=== PATIENT | female | born 1950 | race Hispanic/Latino ===

== ENCOUNTER 2018-05-10 06:29 | Day surgery (SDC) | payer OTHER, MEDICARE ==
[2018-05-10] MEDS ORDERED: ECOTRIN PO NR (06:56)
[2018-05-10] MEDS ORDERED: NACL 0.9% 500 ML 500 ML IV SCH (07:00)
[2018-05-10 07:49] LABS: Basophils # (Auto) 0.1 K/mm3 (0.0-0.1); Basophils % (Auto) 0.7 % (0.0-1.8); Eosinophils # (Auto) 0.1 K/mm3 (0.0-0.4); Eosinophils % (Auto) 1.3 % (0.0-4.3); Hematocrit 35.8 % (30.3-42.9); Hemoglobin 11.5 gm/dl (10.1-14.3); Lymphocytes # (Auto) 0.9 K/mm3 (1.2-5.4); Lymphocytes % (Auto) 12.9 % (13.4-35.0); Mean Corpuscular HGB Conc 32 % (30-34); Mean Corpuscular Hemoglobin 29 pg (28-32); Mean Corpuscular Volume 90 fl (79-97); Monocytes # (Auto) 0.6 K/mm3 (0.0-0.8); Monocytes % (Auto) 8.7 % (0.0-7.3); Platelet Count 263 K/mm3 (140-440); Red Blood Count 3.98 M/mm3 (3.65-5.03); Red Cell Distribution Width 16.3 % (13.2-15.2)
[2018-05-10 07:59] LABS: INR 0.94 (0.87-1.13)
[2018-05-10 08:03] LABS: Calcium 9.1 mg/dL (8.4-10.2)
[2018-05-10] MEDS ORDERED: HEPARIN/NS 5000 UNIT/500ML(CATH LAB) 1,000 ML IR ONE ×2 (08:14→09:13)
[2018-05-10] MEDS ORDERED: XYLOCAINE 2% INFILTRATI ONE (08:14)
[2018-05-10] MEDS ORDERED: CALAN ONE (08:14)
[2018-05-10] MEDS ORDERED: NITROGLYCERIN SYRINGE 3 ML ONE (08:15)
[2018-05-10] MEDS ORDERED: VERSED ONE (08:16)
[2018-05-10] MEDS: SUBLIMAZE ONE ×3 (08:40→09:53)
[2018-05-10] MEDS: HEPARIN 10,000 UNITS/10 ML ONE ×2 (08:43→08:54)
[2018-05-10] MEDS ORDERED: HEPARIN/ 0.45% NACL-25,000 UNIT/500 ML 25,000 UNIT/500 ML BAG ONE (09:05)
[2018-05-10] MEDS: XYLOCAINE MPF 2% ONE ×2 (09:17→09:48)
--- NOTE | 2018-05-10 09:47 | Cardiac Catherization Report ---
CARDIAC CATHETERIZATION REFERRING PHYSICIAN: Dr. Worley. INDICATION FOR PROCEDURE: The patient is a very pleasant 67-year-old female who had a markedly abnormal stress test with a significant anterior ischemia yesterday was referred for left heart catheterization. Risks, benefits, and potential alternatives at length prior to obtaining informed consent. PROCEDURE IN DETAIL: The patient was brought to the catheterization lab in a postabsorptive state, prepped and draped in sterile fashion. Alexis's test in right hand was normal. A 2 mL of 2% lidocaine used to anesthetize the right wrist. A standard 6-Macanese hydrophilic sheath used to cannulate the right radial artery via modified Seldinger technique. All exchanges performed to exchange a J-tip guidewire. JL3.5 catheter used to engage the left main. No dampening or ventricularization. Cineangiography performed in multiple projections. JR4 catheter was used to cross the aortic valve under fluoroscopic guidance. Left ventriculography performed in 30 [place] and [place] projections via hand injections, catheter flushed. Manual pullback performed with continuous pressure monitoring. Catheter used to engage the right coronary. No dampening or ventricularization. Cineangiography performed in all projections. Next, catheter removed from the body of wire, sheath removed. Manual pressure used to achieve hemostasis. DATA: Aortic pressure is 150/50, LV pressure is 150, LVEDP of 20 mmHg. The patient remained in normal sinus rhythm throughout the procedure. Left ventriculography revealed normal systolic performance with estimated ejection fraction of 55-69%. No evidence of aortic stenosis. CORONARY ANATOMY: This is a right dominant system. Left main is well identified. There appears to be a significant distal left main lesion which involved the ostium of the left circumflex and the ostium of the LAD. Ostial LAD appears to be 80% hazy much overlap on angiogram. Ostium of the left circumflex appears to be 90% at least. SUN 3 flow throughout the coronary circulation. No significant disease in the body of the left circumflex or left anterior descending artery. The right coronary is well identified. There is an 80% ostial stenosis noted. At this point, given the questionable distal left main disease proceeded with IVUS, further heparin was given. Abnormal ACT is confirmed. A JL3.5 guide used to engage left main without difficulty. A [place] wire used to cross into the distal LAD without difficulty. I used an IVUS catheter. Multiple passes were made. IVUS reveals a very severe lesion in the ostial LAD, distal left main, MLA of 2.3. This also involves the ostium of the left circumflex. At this point, given severe distal left main disease, albeit patient entirely clinically hemodynamically and electrically stable, decided to proceed with intraaortic balloon pump. A 10 mL of 2% lidocaine used to anesthetize the right coronary and standard 7-Macanese sheath used to cannulate the right common femoral artery. Intraaortic balloon pump placed under fluoroscopic guidance and functioning normally. The sheath was secured. The patient started on IV heparin. I directly supervised the administration of moderate sedation from 8:38 to 9:30 a.m. CONCLUSIONS: 1. Severe epicardial coronary disease with a very critical 90% distal left main stenosis involving the ostium of the LAD and left circumflex. This is confirmed by intravascular ultrasound, which reveals an MLA of approximately 2.3, also 80% ostial right coronary disease. 2. Preserved left ventricular systolic performance, estimated ejection fraction of 55-60%. 3. No evidence of aortic stenosis. 4. Successful placement of intraaortic balloon pump under fluoroscopic guidance. The patient is clinically and hemodynamically stable, started on IV heparin, already given aspirin. Discussed with Dr. Cedric De La Rosa. The patient will be transferred to [facility] for further care and coronary bypass surgery. She is stable for transfer. Results of procedure explained at length to patient and family. All questions and concerns were addressed. JOB# [id number] SBJuan/MEGAN
[2018-05-10] MEDS ORDERED: XYLOCAINE CARDIAC IV ONE (09:49)
[2018-05-10 10:42] VITALS: BP 149/76
[2018-05-10] MEDS ORDERED: VERSED IV ONE (12:03)
--- NOTE | 2018-05-10 13:38 | Short Stay Summary ---
Short Stay Documentation Date of service: 05/10/18 - History H&P: obtained from office - Allergies and Medications Current Medications: Allergies No Known Allergies Allergy (Unverified 05/10/18 06:31) Home Medications Medication Instructions Recorded Confirmed Last Taken Type Acyclovir [Zovirax Tab] 800 mg PO DAILY 05/10/18 05/10/18 05/09/18 History 800mg Allopurinol 300 mg PO DAILY 05/10/18 05/10/18 05/09/18 History 300mg Aspirin EC [Aspirin Enteric Coated 81 mg PO QDAY 05/10/18 05/10/18 05/09/18 History TAB] 81mg Atorvastatin Calcium 40 mg PO DAILY 05/10/18 05/10/18 05/09/18 History 40mg Carvedilol [Coreg] 12.5 mg PO BID 05/10/18 05/10/18 05/09/18 History 12.5mg Chlorthalidone 25 mg PO DAILY 05/10/18 05/10/18 05/09/18 History 25mg Ferrous Sulfate [Iron] 325 mg PO DAILY 05/10/18 05/10/18 05/09/18 History 325mg Multivit-Min/Iron/Folic Acid/K 1 tab PO DAILY 05/10/18 05/10/18 05/09/18 History [Multi-Day Plus Minerals Tablet] 1 tab Potassium Chloride 10 meq PO DAILY 05/10/18 05/10/18 05/09/18 History 10meq metFORMIN XR [Glucophage XR] 500 mg PO BID 05/10/18 05/10/18 05/09/18 History 500mg - Brief post op/procedure progress note Date of procedure: 05/10/18 Pre-op diagnosis: abnormal stress test Post-op diagnosis: other (CAD) Procedure: [facility] - see dictated cath report Anesthesia: local Estimated blood loss: none Condition: stable - Hospital course Hospital course: pt tx to [facility] with IABP for possible CABG - Disposition Condition at discharge: Fair Disposition: [id number]/[place]-70 ANOTHER [facility] - Discharge Diagnoses (1) CAD (coronary artery disease) Status: Chronic Short Stay Discharge Plan Wound: per your surgeon's advice Follow up with: THERESA REYNOSO MD [Primary Care Provider] - 7 Days
== END 2018-05-10 11:00 | disposition other institution (70) ==
LOC: CATHLABREC 06:29
PROVIDERS: ATTEND Internal Medicine
DX: I25.10 Atherosclerotic heart disease of native coronary artery without angina pectoris (principal); E11.9 Type 2 diabetes mellitus without complications; I10 Essential (primary) hypertension; Z79.899 Other long term (current) drug therapy; Z79.82 Long term (current) use of aspirin; Z79.01 Long term (current) use of anticoagulants; Z79.84 Long term (current) use of oral hypoglycemic drugs; Z90.49 Acquired absence of other specified parts of digestive tract; Z98.890 Other specified postprocedural states
CPT/HCPCS: 33967; 36415; 80048; 85025; 85610; 85730; 92978; 93005; 93010; 93458; 99156; 99157; C1753; C1769; C1887; C1894; J1644; J2001; J2250; J3010; J7040; Q9967

== ENCOUNTER 2019-01-23 08:16 | Outpatient (CLI) | payer OTHER ==
--- NOTE | 2019-01-23 11:25 | Fluoroscopy Report ---
Esophagram: History: Dysphagia. Barium swallow the tablet. Findings: Transit of barium to the cervical esophagus appears normal. There is suspicion of an also noted at the lower cervical esophagus with the stricture at the level of C5. There was stasis of tablet noted in the region distal to the ulcer the eventually passed into stomach with barium swallow. There is noted small sliding hiatal hernia. No reflux is noted. Impression: Findings as detailed above. Esophagoscopy may be recommended.
== END 2019-01-23 08:17 | disposition home or self-care (01) ==
LOC: FLUORO 08:16
PROVIDERS: ATTEND Internal Medicine Gastroenterology
DX: K44.9 Diaphragmatic hernia without obstruction or gangrene (principal); K21.9 Gastro-esophageal reflux disease without esophagitis; I25.10 Atherosclerotic heart disease of native coronary artery without angina pectoris; I10 Essential (primary) hypertension; E11.9 Type 2 diabetes mellitus without complications
CPT/HCPCS: 74220

== ENCOUNTER 2019-04-02 10:11 | Day surgery (SDC) | payer MEDICARE, OTHER ==
[~2019-04-02 10:11] MED LIST: NACL 0.9% 1000 ML 1,000 ML IV SCH
[2019-04-02] MEDS ORDERED: DIPRIVAN 10 MG/ML IV ONE (11:18)
[2019-04-02 11:41] VITALS: BP 151/69
--- NOTE | 2019-04-02 19:22 | Anesthesia Day of Surgery ---
Anesthesia Day of Surgery - Day of Surgery Patient Examined: Yes Patient H&P Reviewed: Yes Patient is NPO: Yes
--- NOTE | 2019-04-02 19:22 | Anesthesia Consultation ---
Anesthesia Consult and Med Hx Date of service: 04/02/19 - Airway Anesthetic Teeth Evaluation: Poor Intubation Access Assessment: Possibly Difficult - Pre-Operative Health Status ASA Pre-Surgery Classification: ASA3 Proposed Anesthetic Plan: MAC - Pulmonary Hx Smoking: Yes SOB: Yes - Cardiovascular System Hx Hypertension: Yes Hx Coronary Artery Disease: Yes (s/p CABG 2017) Hx Heart Attack/AMI: No Hx Percutaneous Transluminal Coronary Angioplasty (PTCA): No - Central Nervous System Hx Psychiatric Problems: No - Gastrointestinal Hx Ulcer: Yes Hx Gastroesophageal Reflux Disease: Yes (w/ hiatal hernia) - Endocrine Hx Non-Insulin Dependent Diabetes: Yes - Hematic Hx Anemia: Yes - Other Systems Hx Obesity: Yes
== END 2019-04-02 10:12 | disposition home or self-care (01) ==
LOC: GIO 10:11
PROVIDERS: ATTEND Internal Medicine Gastroenterology
DX: K21.9 Gastro-esophageal reflux disease without esophagitis (principal); R13.10 Dysphagia, unspecified; I25.10 Atherosclerotic heart disease of native coronary artery without angina pectoris; I10 Essential (primary) hypertension; E66.9 Obesity, unspecified; E11.9 Type 2 diabetes mellitus without complications; D64.9 Anemia, unspecified; Z53.8 Procedure and treatment not carried out for other reasons; Z79.899 Other long term (current) drug therapy; Z79.82 Long term (current) use of aspirin; Z79.84 Long term (current) use of oral hypoglycemic drugs; Z95.1 Presence of aortocoronary bypass graft; Z90.49 Acquired absence of other specified parts of digestive tract; Z68.37 Body mass index [BMI] 37.0-37.9, adult; Z98.890 Other specified postprocedural states; Z82.49 Family history of ischemic heart disease and other diseases of the circulatory system
CPT/HCPCS: 82962; J7030; J2704

== ENCOUNTER 2019-04-16 06:35 | Day surgery (SDC) | payer MEDICARE, OTHER ==
[2019-04-16] MEDS ORDERED: NACL 0.9% 1000 ML 1,000 ML IV SCH (08:00)
--- NOTE | 2019-04-16 08:10 | Anesthesia Day of Surgery ---
Anesthesia Day of Surgery - Day of Surgery Patient Examined: Yes Patient H&P Reviewed: Yes Patient is NPO: Yes
--- NOTE | 2019-04-16 08:12 | Anesthesia Consultation ---
Anesthesia Consult and Med Hx Date of service: 04/16/19 - Airway Anesthetic Teeth Evaluation: Dentures, Edentulous ROM Head & Neck: Adequate Mental/Hyoid Distance: Adequate Mallampati Class: Class II Intubation Access Assessment: Good - Pre-Operative Health Status ASA Pre-Surgery Classification: ASA3 Proposed Anesthetic Plan: MAC - Pulmonary Hx Smoking: Yes SOB: Yes (uses inhaler prn) - Cardiovascular System Hx Hypertension: Yes Hx Coronary Artery Disease: Yes (Recently saw template reproduction technician-ok per pt) Hx Heart Attack/AMI: No Hx Angina: No Hx Percutaneous Transluminal Coronary Angioplasty (PTCA): No - Central Nervous System Hx Psychiatric Problems: No - Gastrointestinal Hx Ulcer: Yes Hx Gastroesophageal Reflux Disease: Yes (w/ hiatal hernia) - Endocrine Hx Non-Insulin Dependent Diabetes: Yes - Hematic Hx Anemia: Yes - Other Systems Hx Cancer: No Hx Obesity: Yes
[2019-04-16] MEDS ORDERED: XYLOCAINE 2% INFILTRATI ONE (08:48)
[2019-04-16] MEDS ORDERED: DIPRIVAN 10 MG/ML IV ONE (08:48)
--- NOTE | 2019-04-16 09:11 | Short Stay Summary ---
Short Stay Documentation Date of service: 04/16/19 Narrative H&P: The patient presents for EGD/dilation for dysphagia - History Past Medical History: CAD, diabetes, other (obesity, gout) Past Surgical History: Social history: no significant social history, , lives with family - Allergies and Medications Current Medications: Allergies No Known Allergies Allergy (Verified 09/03/18 13:08) Home Medications Medication Instructions Recorded Confirmed Last Taken Type Allopurinol 300 mg PO DAILY 05/10/18 04/02/19 04/01/19 15:00 History Aspirin EC [Aspirin Enteric Coated 81 mg PO QDAY 05/10/18 04/02/19 04/01/19 15:00 History TAB] Atorvastatin Calcium 40 mg PO DAILY 05/10/18 04/02/19 04/01/19 15:00 History Carvedilol [Coreg] 12.5 mg PO BID 05/10/18 04/02/19 04/01/19 15:00 History Ferrous Sulfate [Iron 325 MG] 325 mg PO DAILY 05/10/18 04/02/19 04/01/19 15:00 History Multivit-Min/Iron/Folic Acid/K 1 tab PO DAILY 05/10/18 04/02/19 04/01/19 15:00 History [Multi-Day Plus Minerals Tablet] Potassium Chloride 10 meq PO DAILY 05/10/18 04/02/19 04/01/19 15:00 History metFORMIN XR [Glucophage XR] 500 mg PO BID 05/10/18 04/02/19 04/01/19 15:00 History Cyanocobalamin (Vitamin B-12) 1,000 mcg PO DAILY 09/03/18 04/02/19 04/01/19 15:00 History [Vitamin B-12] Furosemide [Lasix TAB] 40 mg PO DAILY 09/03/18 04/02/19 04/01/19 15:00 History Rivaroxaban [Xarelto] 15 mg PO DAILY 09/03/18 04/02/19 04/01/19 15:00 History amLODIPine [Norvasc] 5 mg PO DAILY 09/03/18 04/02/19 04/01/19 15:00 History Active Medications Sodium Chloride (Nacl 0.9% 1000 Ml) 1,000 mls @ 50 mls/hr IV DIRECT KEVIN Last Admin: 04/16/19 08:26 Dose: 50 mls/hr Documented by: - Physical exam General appearance: no acute distress, well-nourished, obese Integumentary: no rash, no growths, no abnormal pigmentation HEENT: Atraumatic, PERRLA, EOMI, Mucous membr. moist/pink Lungs: Clear to auscultation, Normal air movement Breasts: deferred Heart: Regular rate, Normal S1, Normal S2, No murmurs Gastrointestinal: normoactive bowel sounds, no tenderness, no distended, no masses, no guarding, no organomegaly, no obese Female Genitourinary: deferred Rectal Exam: deferred Extremities: no ischemia, pulses intact, pulses symmetrical, No edema, normal temperature, normal color, Full ROM Neurological: Normal gait, Normal speech, Strength at 5/5 X4 ext, Normal tone, Sensation intact, Cranial nerves 3-12 NL, Reflexes 2+ - Brief post op/procedure progress note Date of procedure: 04/16/19 Findings: see dictation Estimated blood loss: none Pathology: none Specimen disposition: to lab Condition: stable - Disposition Condition at discharge: Good Disposition: DC-01 TO HOME OR SELFCARE - Discharge Diagnoses (1) Dysphagia Status: Acute Short Stay Discharge Plan Activity: no restrictions, other (no driving for 24, restart Xarelto in 48 hours) Weight Bearing Status: Full Weight Bearing Diet: diabetic Follow up with: THERESA REYNOSO MD [Primary Care Provider] - 7 Days
[2019-04-16] MEDS ORDERED: VERSED ONE (09:13)
--- NOTE | 2019-04-16 09:18 | Operative Report ---
Operative Report Operative Report: Date of procedure: 04/16/2019 Procedure: Esophagogastroduodenoscopy with esophageal dilation-42 and 50 Cymraes Siegel dilators. Preprocedure diagnosis: Dysphagia to solid foods Post procedure diagnosis: Benign distal esophageal rings Endoscopist: Dr. Pham Anesthesia: Monitored anesthesia care per anesthesia department Medications: Propofol per anesthesia Estimated blood loss: 0 After careful discussion of the nature and purpose of the procedure as well as details the technique risks benefits and alternatives consent was obtained. The patient was placed in the left lateral decubitus position and medicated per anesthesia. The tip of the [email or web address] EQ 570 video scope was passed per orum under direct vision into the esophagus and advanced into the stomach and descending duodenum. The descending duodenum the duodenal bulb and pylorus were symmetrical and normal. The scope was withdrawn into the stomach and the stomach then gently insufflated with air. The antrum was normal. The stomach was further insufflated and the scope was then retroflexed and partially with drawn. The cardia, fundus, and body of the stomach were within normal limits and easily distensible.The scope was then withdrawn in the forward position. The esophagogastric junction was at 37 cm. Small hiatus hernia was present. Multiple benign appearing distal esophageal rings were present. In light of symptoms, dilation was performed. A Siegel 42 Cymraes dilator was passed with minimal resistance followed by a 50 Cymraes dilator with mild resistance. The esophageal body was otherwise normal throughout. The procedure was was well tolerated and the patient was observed in recovery. Impressions: Multiple benign appearing distal esophageal rings. Status post dilation. Small hiatus hernia. Plan: Redilate when necessary. Continue acid suppression therapy. Electronically signed: [place] Pham MD
[2019-04-16] MEDS ORDERED: WATER FOR IRRIG STERILE IR ONE (09:39)
[2019-04-16 09:42] VITALS: BP 145/59
== END 2019-04-16 06:36 | disposition home or self-care (01) ==
LOC: GIO 06:35
PROVIDERS: ATTEND Internal Medicine Gastroenterology
DX: K22.2 Esophageal obstruction (principal); I25.10 Atherosclerotic heart disease of native coronary artery without angina pectoris; K21.9 Gastro-esophageal reflux disease without esophagitis; K44.9 Diaphragmatic hernia without obstruction or gangrene; I10 Essential (primary) hypertension; E66.9 Obesity, unspecified; E11.9 Type 2 diabetes mellitus without complications; Z79.899 Other long term (current) drug therapy; Z79.84 Long term (current) use of oral hypoglycemic drugs; Z79.82 Long term (current) use of aspirin; Z95.1 Presence of aortocoronary bypass graft; Z90.49 Acquired absence of other specified parts of digestive tract; Z68.37 Body mass index [BMI] 37.0-37.9, adult; Z98.890 Other specified postprocedural states; Z82.49 Family history of ischemic heart disease and other diseases of the circulatory system; Z86.2 Personal history of diseases of the blood and blood-forming organs and certain disorders involving the immune mechanism
CPT/HCPCS: 43450; 82962; J2250; J2704; J7030

== ENCOUNTER 2021-03-23 07:28 | Day surgery (SDC) | payer MEDICARE, OTHER ==
[~2021-03-23 07:28] MED LIST changes: -NACL 0.9% 1000 ML 1,000 ML IV SCH; +SODIUM CHLORIDE 0.9% 1000 ML 1,000 ML IV SCH
--- NOTE | 2021-03-23 07:59 | Anesthesia Consultation ---
<ARANZA NELSON - Last Filed: 03/23/21 08:01> Anesthesia Consult and Med Hx Date of service: 03/23/21 - Airway Anesthetic Teeth Evaluation: Dentures (upper and lower), Edentulous ROM Head & Neck: Adequate Mental/Hyoid Distance: Adequate Mallampati Class: Class III Intubation Access Assessment: Possibly Difficult - Pre-Operative Health Status ASA Pre-Surgery Classification: ASA3 Proposed Anesthetic Plan: MAC - Pulmonary Hx Smoking: Yes SOB: Yes (uses inhaler prn) - Cardiovascular System Hx Hypertension: Yes Hx Coronary Artery Disease: Yes (s/p CABG 2017, no CP) Hx Heart Attack/AMI: No Hx Angina: No Hx Percutaneous Transluminal Coronary Angioplasty (PTCA): No - Central Nervous System Hx Psychiatric Problems: No - Gastrointestinal Hx Ulcer: Yes (dysphagea) Hx Gastroesophageal Reflux Disease: Yes (w/ hiatal hernia) - Endocrine Hx Non-Insulin Dependent Diabetes: Yes - Hematic Hx Anemia: Yes - Other Systems Hx Cancer: No Hx Obesity: Yes <FERNANDA DOHERTY - Last Filed: 03/23/21 09:20> Anesthesia Consult and Med Hx - Additional Comments Anesthesia Medical History Comments: No signs/symptoms cardiac decompensation. Last dose coumadin 03/13/21. Most recent cardiology eval requested.
[2021-03-23] MEDS ORDERED: propofoL 200 MG/20 ML VIAL IV ONE ×2 (09:19→09:38)
--- NOTE | 2021-03-23 09:20 | Anesthesia Day of Surgery ---
Anesthesia Day of Surgery - Day of Surgery Patient Examined: Yes Patient H&P Reviewed: Yes Patient is NPO: Yes
--- NOTE | 2021-03-23 09:55 | Short Stay Summary ---
Short Stay Documentation Date of service: 03/23/21 Narrative H&P: the patient presents for EGD and dilation due to dysphagia and history of esophageal rings - History Past Medical History: CAD, COPD, diabetes, hypertension, hyperlipidemia, other (morbid obesity) Past Surgical History: Social history: no significant social history, , lives with family - Allergies and Medications Current Medications: Allergies No Known Allergies Allergy (Verified 09/03/18 13:08) Home Medications Medication Instructions Recorded Confirmed Last Taken Type Aspirin EC [Halfprin EC] 81 mg PO QDAY 05/10/18 04/02/19 04/01/19 15:00 History 81 mg Atorvastatin Calcium 40 mg PO DAILY 05/10/18 04/02/19 04/01/19 15:00 History 40 mg Ferrous Sulfate [Iron 325 MG] 325 mg PO DAILY 05/10/18 04/02/19 04/01/19 15:00 History 325 mg Multivit-Min/Iron/Folic Acid/K 1 tab PO DAILY 05/10/18 04/02/19 04/01/19 15:00 History [Multi-Day Plus Minerals Tablet] Potassium Chloride 10 meq PO DAILY 05/10/18 04/02/19 04/01/19 15:00 History 10 meq allopurinoL [Allopurinol] 300 mg PO DAILY 05/10/18 04/02/19 04/01/19 15:00 History 300 mg carvediloL [Coreg] 12.5 mg PO BID 05/10/18 04/02/19 04/01/19 15:00 History metFORMIN XR [Glucophage XR] 500 mg PO BID 05/10/18 04/02/19 04/01/19 15:00 History 500 mg Cyanocobalamin (Vitamin B-12) 1,000 mcg PO DAILY 09/03/18 04/02/19 04/01/19 15:00 History [Vitamin B-12] Furosemide [Lasix TAB] 40 mg PO DAILY 09/03/18 04/02/19 04/01/19 15:00 History amLODIPine 5 mg PO DAILY 09/03/18 04/02/19 04/01/19 15:00 History Active Medications Sodium Chloride (Nacl 0.9% 1000 Ml) 1,000 mls @ 50 mls/hr IV DIRECT KEVIN - Physical exam General appearance: no acute distress, well-nourished, obese Integumentary: no rash, no growths, no abnormal pigmentation HEENT: Atraumatic, PERRLA, EOMI, Mucous membr. moist/pink Lungs: Clear to auscultation, Normal air movement Breasts: deferred Heart: Regular rate, Normal S1, Normal S2, No murmurs Gastrointestinal: normoactive bowel sounds, no tenderness, no distended, no masses, no guarding, no organomegaly, obese Female Genitourinary: deferred Rectal Exam: deferred Extremities: no ischemia, pulses intact, pulses symmetrical, No edema, normal temperature, normal color, Full ROM Neurological: Normal gait, Normal speech, Strength at 5/5 X4 ext, Normal tone, Sensation intact, Cranial nerves 3-12 NL - Brief post op/procedure progress note Date of procedure: 03/23/21 Findings: see dictation Estimated blood loss: minimal Pathology: list (1. antral biopsies for h.pylori, 2. mid esophageal biopsies for EOE) Specimen disposition: to lab Condition: stable - Disposition Condition at discharge: Good Disposition: DC-01 TO HOME OR SELFCARE - Discharge Diagnoses (1) Dysphagia Status: Acute (2) CAD (coronary artery disease) Status: Chronic Short Stay Discharge Plan Activity: other (no driving for 24 hours, restart warfarin tomorrow) Weight Bearing Status: Weight Bear as Tolerated Diet: diabetic Follow up with: THERESA REYNOSO MD [Primary Care Provider] - 7 Days
--- NOTE | 2021-03-23 10:00 | Operative Report ---
Operative Report Operative Report: Date of procedure: 03/23/2021 Procedure: Esophagogastroduodenoscopy with biopsies of the antrum for H. pylori, biopsies of the midesophagus for eosinophilic esophagitis. Balloon dilation of the esophagus, 12-15, 18 mm. Preprocedure diagnosis: Dysphagia to solid foods. History of esophageal rings. Post procedure diagnosis: Moderate diffuse gastritis with retained bile. Small hiatus hernia. Multiple esophageal rings. Endoscopist: Dr. Pham Anesthesia: Monitored anesthesia care per anesthesia department Medications: Propofol per anesthesia Estimated blood loss: 0 After careful discussion of the nature and purpose of the procedure as well as details the technique risks benefits and alternatives consent was obtained. The patient was placed in the left lateral decubitus position and medicated per anesthesia. The tip of the [employer] EQ 570 video scope was passed per orum under direct vision into the esophagus and advanced into the stomach and descending duodenum. The descending duodenum the duodenal bulb and pylorus were symmetrical and normal. The scope was withdrawn into the stomach and the stomach then gently insufflated with air. The antrum revealed moderate diffuse erythema and some retained bile. 3 biopsies were taken in the prepyloric area for H. pylori testing. The stomach was further insufflated and the scope was then retroflexed and partially withdrawn. There was moderate diffuse erythema of the body of the stomach and some retained bile. A small hiatus hernia was present. The cardia and fundus were otherwise normal on retroflexed view. The esophagogastric junction was at 35 cm. Multiple esophageal rings were present, mostly in the distal third. Balloon dilation was then performed. Initially a 12 to 15 mm balloon was utilized sequentially over 2 to 3 minutes. At maximal distention, 15 mm the balloon did not appear particularly tight in the distal esophagus and it was elected to dilate the esophagus with a larger diameter balloon. This balloon was removed followed by insertion of an 18 mm balloon. The balloon was insufflated for approximately 30 seconds at this level. Mild trauma was present at the EG junction. No significant bleeding however occurred. 5 biopsies were taken from the midesophagus to assess for possible eosinophilic esophagitis in light of the rings. The procedure was was well tolerated and the patient was observed in recovery. Impressions: Mild to moderate diffuse gastritis possibly secondary to bile. Rule out H. pylori. Hiatus hernia, small. Multiple esophageal rings. Status post dilation and biopsy of the midesophagus. Plan: Await results of the pathology from the stomach and midesophagus. Redila te as needed. Continue acid suppression therapy. The patient will call the office in approximately 10 days regarding the pathology report and further management. Office follow-up in approximately 4 months. Electronically signed: [place] Pham MD
[2021-03-23 10:18] VITALS: BP 145/55
--- NOTE | 2021-03-23 10:52 | Post Anesthesia Evaluation ---
- Post Anesthesia Evaluation Patient Participated: Yes Airway Patent: Yes Stable Respiratory Function: Yes Nausea/Vomiting: No Temp > 96.8F: Yes Pain Manageable: Yes Adequeate Hydration: Yes Anesthesia Complications: No
== END 2021-03-23 10:30 | disposition home or self-care (01) ==
LOC: GIO 07:28
PROVIDERS: ATTEND Internal Medicine Gastroenterology
DX: R13.10 Dysphagia, unspecified (principal); K31.89 Other diseases of stomach and duodenum; K44.9 Diaphragmatic hernia without obstruction or gangrene; K29.70 Gastritis, unspecified, without bleeding; I10 Essential (primary) hypertension; K21.9 Gastro-esophageal reflux disease without esophagitis; I25.10 Atherosclerotic heart disease of native coronary artery without angina pectoris; E78.00 Pure hypercholesterolemia, unspecified; E66.9 Obesity, unspecified; E11.9 Type 2 diabetes mellitus without complications; M10.9 Gout, unspecified; Z90.49 Acquired absence of other specified parts of digestive tract; Z98.890 Other specified postprocedural states; Z87.891 Personal history of nicotine dependence; Z79.84 Long term (current) use of oral hypoglycemic drugs; Z79.899 Other long term (current) drug therapy; Z82.49 Family history of ischemic heart disease and other diseases of the circulatory system
CPT/HCPCS: 43239; 43249; 82962; 88305; 88342; C1726; J2704; J7030